=== PATIENT | female | born 1990 | race Caucasian/White ===

== ENCOUNTER 2016-07-06 14:06 | Observation (INO) ==
[2016-07-06] MEDS ORDERED: *HR* HYDROmorphone (PF) 1 MG/ML SYRINGE IVP PRN (16:05)
[2016-07-06] MEDS ORDERED: Ringers Solution, Lactated 1,000 ML IVC SCH ×2 (16:15→21:30)
--- NOTE | 2016-07-06 17:28 | Anesthesia Evaluation PreOp ---
Date of Encounter: 07/06/16 Time of Encounter: 17:26 - Past History Planned Operation: Left Laproscopic Salpingectomy Cardiac History: Denies any Significant Hx Pulmonary History: Smoker, Asthma [employer]AD[employer] History: Denies Any Significant HX Other Medical History: Denies Any Significant HX Anesthesia History: No Prior Anesthetic Complications, Past Anesthesia (c/s) : No Test: Negative Alcohol Use: none Drug use: none Medications and Allergies Vit Calc,Iron,Folic [ Vitamins] 1 each PO DAILY #30 tablet 10/03 [Rx] Buspirone HCl [Buspar] 7.5 mg PO BID PRN 04/07/16 [History] Docusate [Colace] 100 mg PO BID #30 capsule 05/04/16 [Rx] Ferrous Sulfate 325 mg PO DAILY #30 tablet 05/04/16 [Rx] Ibuprofen [Motrin] 600 mg PO Q6HR PRN #60 tablet 05/04/16 [Rx] OxyCODONE/APAP 5/325 [Percocet 5/325 MG] 1 each PO Q4HR PRN #30 tablet 05/04/16 [Rx] Simethicone [Gas-X] 80 mg PO TID PRN #0 tab.chew 05/04/16 [Rx] Cephalexin 500 mg PO BID 5 Days 05/23/16 [Rx] Ibuprofen [Motrin] 800 mg PO Q8HR #30 tablet 07/04/16 [Rx] HYDROcodone/Acet 5/325 mg [[place] 5-325 mg] 1 tab PO Q4H PRN #12 tab 07/06/16 [Rx ] Allergies ciprofloxacin [From Cipro] Allergy (Verified 07/06/16 07:10) See Comments pt does not know what typr of reaction she had when taking this medication sulfamethoxazole [From Bactrim] Allergy (Verified 07/06/16 07:10) Rash trimethoprim [From Bactrim] Allergy (Verified 07/06/16 07:10) Rash - Meds/Allergy Pre-op Review Medications Reviewed: Yes Allergies Reviewed: Yes Beta Blockers on Current Med List: No Anesthesia Results - Labs Laboratory Tests 07/06/15 07/04/16 07/04/16 21:52 18:55 18:55 WBC 7.1 Hgb 13.5 Hct 42.2 Plt Count 172 Sodium 139 Potassium 4.1 Chloride 107 Carbon Dioxide 22 BUN 15 Creatinine 0.83 Beta HCG, Quant < 1 - Imaging EKG: image reviewed (Sr with sinus arrythmia) Anesthesia Exam O2 Sat Height 1.65 m Height 1.65 m Weight 87.3 kg Weight 87.3 kg O2 Sat by Pulse Oximetry 99 Vital Signs Resp 16 07/06/16 16:42 Vital Signs/O2 Sat, Most Current Temp Pulse Resp BP Pulse Ox 97.5 F L 60 16 109/70 99 07/06/16 16:52 07/06/16 16:52 07/06/16 16:52 07/06/16 16:52 07/06/16 16:52 Height: 5'5'' Weight: 192# NPO (# of Hours): > 8 hrs Pain Scale: 0 Pain Scale Used: Numeric (1 - 10) - HEENT Pupil (Motor): Pupils equal, EOMI Mallampati: II - [employer] LEADER LOC: Oriented [employer] LEADER Motor: Normal RUE, Normal LUE, Normal RLE, Normal LLE, Normal Face [employer] LEADER Sensory: Normal: RUE, LUE, RLE, LLE, Face - Cardiac Rhythm: Regular Murmur: None JVD: No Carotid Bruit: No - Pulmonary Breath Sounds: bilateral Clear Respiratory Effort: Symmetrical Anesthesia Assess/Plan ASA Score: 2 Modified [place] Scale for Level of Consciousness: Cooperative, oriented, and tranquil Anesthetic Plan: General Autologous Blood: Yes Monitoring Plan: Standard Monitors Recovery Plan: PACU
[2016-07-06] MEDS ORDERED: Bupivacaine/EPI 1:200k 0.25%PF 10 ML VIAL INFILT ONE (18:01)
[2016-07-06] MEDS ORDERED: Albuterol 2.5 MG/3 ML NEBULIZER ONE (18:25)
[2016-07-06] MEDS ORDERED: Albuterol 2.5 MG/3 ML NEBULIZER IH ONE (18:26)
[2016-07-06] MEDS ORDERED: *HR* Propofol 200 MG/20 ML VIAL IVP ONE (18:34)
[2016-07-06] MEDS ORDERED: *HR* Midazolam HCl 2 MG/2 ML VIAL ONE (18:34)
[2016-07-06] MEDS ORDERED: *HR* FentaNYL (PF) 100 MCG/2 ML VIAL ONE (18:34)
[2016-07-06] MEDS ORDERED: *HR* Rocuronium Bromide 50 MG/5 ML VIAL ONE (18:35)
[2016-07-06] MEDS ORDERED: Lidocaine -MPF 2% 2 ML VIAL ONE (18:35)
[2016-07-06] MEDS ORDERED: Lidocaine -MPF 4% 5 ML AMPUL ONE (18:37)
[2016-07-06] MEDS ORDERED: *HR* Morphine 10 MG/ML VIAL ONE (19:51)
[2016-07-06] MEDS ORDERED: Ondansetron 4 MG/2 ML VIAL ONE (20:03)
[2016-07-06] MEDS ORDERED: Dexamethasone 4 MG/ML VIAL ONE (20:03)
[2016-07-06] MEDS ORDERED: Neostigmine Methylsulfate 3 MG/3 ML SYRINGE ONE (20:26)
--- NOTE | 2016-07-06 21:08 | Anesthesia Evaluation Post Op ---
Date of Encounter: 07/06/16 Time of Encounter: 21:07 - Vital Signs Vital Signs: Vital Signs/O2 Sat, Most Current Temp Pulse Resp BP Pulse Ox 97.1 F L 54 12 106/60 95 07/06/16 21:02 07/06/16 21:02 07/06/16 21:02 07/06/16 21:02 07/06/16 21:02 - Lungs Lungs: Clear Ascult./Percussion - Airway Airway: Non-obstructed - Cardiovascular Regular Rate - Mental Status Mental Status: Asleep with brisk response to light stimulation - Pain Pain Scale: 3 Pain Scale used: Numeric (1 - 10) - Nausea Vomiting Nausea Vomiting: Not Present - Hydration Hydration: NPO, Has not voided - Discharge PostOp Status: Transfer Patient to floor
--- NOTE | 2016-07-06 21:13 | OB/GYN Procedure Note ---
Laparoscopy Procedure - Diagnosis Date of procedure: 07/06/16 Pre-op diagnosis: acute pelvic pain, ovarian cyst (probable dermoid,probable intermittent torsion) Post-op diagnosis: same, pelvic adhesive disease - Procedure Laparoscopy procedure: operative laparoscopy, left oophorectomy, lysis of pelvic adhesions (extensive 45 minutes) Surgeon: Ilya Bentley Anesthesia Type: General Estimated blood loss (cc): 20 Complications: none Specimens: left ovary Findings: Dense pelvic adhesions between entire anterior uterus and abdominal wall, omental adhesions above the uterine fundus to the a Both round ligaments adherent to, adhesions and bilateral ovaries an, 2 cm fat-containing cyst on left ovary removed intact. Disposition: PACU Narrative: patient is 26-year-old female statu has presented to the emergency room twice in the last week with severe Pelvic pain. She is complaining of significan and CAT scan showed probable left ovarian dermoid cyst. She has been afebrile with perez She had an appointment scheduled however because of significant marcio In our office today ultrasound did showleft ovarian cyst that filled consistent with probabledermoid cyst. She had significant pain and I with intermittent torsion.after discussing with patient option decision was made to proceed with Laparoscopy with probable cystectomy vs oophrectomy period. Questions were answered and appropriate consent was obtained. Description of procedure:patient was taken to operating room where she was prepped and draped in usual sterile fashion. Bladder was drained of clear urine. Cervix was visualized and grasped with a single-tooth tenaculum and an acorn uterine manipulator was placed. A 5 mm trocar was introduced below the umbilicus.upon entering adhesions were noted between the uterus and the anterior abdominal wall.ada this omentum was densely adherent above the uterus extending to the right pelvis. The round ligaments on each side and uterovarian ligaments were adherent to the abdominal wall. u]Under direct visualization a 5 mm trochar was placed in the LLQ. Using sciors and Ligasure the omental adhesions were easily taken down. Once the omental adhesions were taken down the Ligasure was used to free the adhesions b/w both round ligaments and the uterovarian ligaments dropping them back down into proper anatomical position. 12 mm trochar was placed under direct visualization in the RLQ. The left ovary was then grasped with madeleine and the Ligasure was used to cauterize and transect the left infundibulo ligament and uterovarian ligament. The left ovar was then transected free of the mesosalpinx. The left ovary was placed in an endocatch bag and removed. Thin adhesions were noted b/w the right ovary and pelvic sidewall, these were transected. Irrigation was performed and hemostasis was ensured. Pneumoperitoneum was released and trochars were removed. Fascia was closed with 0 vicryl at 12mm port. Skin edges were reapproximated with 4-0 Vicryl. All sponge needle and instrument counts were correct and pt was taken to recovery room in excellent conditon.
[2016-07-06] MEDS ORDERED: *HR* OxyCODONE/APAP 5/325 TABLET PO ONE (21:30)
[2016-07-06] MEDS ORDERED: Ibuprofen 600 MG TABLET PO PRN (21:30)
--- NOTE | 2016-07-06 23:27 | Discharge Summary ---
Outpatient Proc Discharge Plan - Plan Prescriptions: Ibuprofen [Motrin] 600 mg PO Q6HR PRN #40 tablet PRN Reason: Pain Home Medications: Vit Calc,Iron,Folic [ Vitamins] 1 each PO DAILY #30 tablet 10/03 [Rx] Buspirone HCl [Buspar] 7.5 mg PO BID PRN 04/07/16 [History] Docusate [Colace] 100 mg PO BID #30 capsule 05/04/16 [Rx] Ferrous Sulfate 325 mg PO DAILY #30 tablet 05/04/16 [Rx] Ibuprofen [Motrin] 600 mg PO Q6HR PRN #60 tablet 05/04/16 [Rx] OxyCODONE/APAP 5/325 [Percocet 5/325 MG] 1 each PO Q4HR PRN #30 tablet 05/04/16 [Rx] Simethicone [Gas-X] 80 mg PO TID PRN #0 tab.chew 05/04/16 [Rx] Cephalexin 500 mg PO BID 5 Days 05/23/16 [Rx] Ibuprofen [Motrin] 800 mg PO Q8HR #30 tablet 07/04/16 [Rx] HYDROcodone/Acet 5/325 mg [[place] 5-325 mg] 1 tab PO Q4H PRN #12 tab 07/06/16 [Rx ] Ibuprofen [Motrin] 600 mg PO Q6HR PRN #40 tablet 07/06/16 [Rx]
--- NOTE | 2016-07-06 23:31 | Discharge Summary ---
Outpatient Proc Discharge Plan - Plan Prescriptions: OxyCODONE/APAP 5/325 [Percocet 5/325 MG] 1 each PO Q4HR PRN #30 tablet PRN Reason: post op pain Ibuprofen [Motrin] 600 mg PO Q6HR PRN #40 tablet PRN Reason: Pain Ibuprofen [Motrin] 600 mg PO Q6HR PRN #40 tablet PRN Reason: post op pain Home Medications: Vit Calc,Iron,Folic [ Vitamins] 1 each PO DAILY #30 tablet 10/03 [Rx] Buspirone HCl [Buspar] 7.5 mg PO BID PRN 04/07/16 [History] Docusate [Colace] 100 mg PO BID #30 capsule 05/04/16 [Rx] Ferrous Sulfate 325 mg PO DAILY #30 tablet 05/04/16 [Rx] Simethicone [Gas-X] 80 mg PO TID PRN #0 tab.chew 05/04/16 [Rx] Cephalexin 500 mg PO BID 5 Days 05/23/16 [Rx] Ibuprofen [Motrin] 800 mg PO Q8HR #30 tablet 07/04/16 [Rx] HYDROcodone/Acet 5/325 mg [[place] 5-325 mg] 1 tab PO Q4H PRN #12 tab 07/06/16 [Rx ] Ibuprofen [Motrin] 600 mg PO Q6HR PRN #40 tablet 07/06/16 [Rx] Ibuprofen [Motrin] 600 mg PO Q6HR PRN #40 tablet 07/06/16 [Rx] OxyCODONE/APAP 5/325 [Percocet 5/325 MG] 1 each PO Q4HR PRN #30 tablet 07/06/16 [Rx]
[2016-07-06 23:50] VITALS: BP 101/61
== END 2016-07-07 00:25 | disposition home or self-care (01) ==
LOC: INTOOBSV 14:23 → 1NENUOBS 14:23
PROVIDERS: ADMIT Obstetrics & Gynecology; ATTEND Obstetrics & Gynecology